=== PATIENT | female | born 1970 | race Caucasian/White ===

== ENCOUNTER → 2023-11-12 | Day surgery (SDC) | payer OTHER | END | disposition home or self-care (01) | LOC: FMAMMOTONE 12:50 | PROVIDERS: ATTEND Family Medicine | PROC: 0HBT3ZX Excision of Right Breast, Percutaneous Approach, Diagnostic (ICD-10-PCS; principal; 2023-11-12) | DX: D05.91 Unspecified type of carcinoma in situ of right breast (principal); N64.1 Fat necrosis of breast; N64.89 Other specified disorders of breast; R92.1 Mammographic calcification found on diagnostic imaging of breast | CPT/HCPCS: 19081; 76098-TC-FY; 88305-TC; 88342-TC ==

== ENCOUNTER → 2023-12-21 | Day surgery (SDC) | payer OTHER ==
[~2023-12-21] MED LIST: FENTANYL CITRATE/PF 50 MCG/ML VIAL ONE; MIDAZOLAM HCL 2 MG/2 ML SINGLE DOSE VIAL ONE; ONDANSETRON 4 MG/2 ML VIAL ONE; PROPOFOL 20 ML ONE
== END | disposition home or self-care (01) ==
LOC: JRADUS-SUR 10:16
PROVIDERS: ATTEND Surgery Surgical Oncology
PROC: BH00ZZZ Plain Radiography of Right Breast (ICD-10-PCS; principal; 2023-12-21)
DX: D05.11 Intraductal carcinoma in situ of right breast (principal)
CPT/HCPCS: 19281; A4648

== ENCOUNTER 2023-12-23 04:16 | Day surgery (SDC) | payer OTHER ==
[2023-12-17 13:25] VITALS: BMI 29.0
[2023-12-23] MEDS ORDERED: BUPIVACAINE HCL/PF 0.25% (2.5MG/ML) 10 ML VIAL ONE (07:41)
[2023-12-23] MEDS: ceFAZolin SODIUM 1 GM VIAL IVPB ONE (09:24)
[2023-12-23] MEDS ORDERED: ACETAMINOPHEN INJECTION 100 ML IVPB ONE (09:40)
[2023-12-23] MEDS: BUPIVACAINE HCL/PF 0.25% (2.5MG/ML) 10 ML VIAL IJ ONE ×2 (09:48)
[2023-12-23] MEDS ORDERED: ONDANSETRON 4 MG/2 ML VIAL IVPUSH PRN (10:34)
[2023-12-23] MEDS: LACTATED RINGERS SOLUTION 1,000 ML IV SCH (12:11)
[2023-12-23] MEDS: oxyCODONE HCL 5 MG TABLET PO ONE (12:50)
[2023-12-23] MEDS ORDERED: oxyCODONE HCL 5 MG TABLET ONE (12:52)
[2023-12-23 12:59] VITALS: RESP 20
[2023-12-23] MEDS ORDERED: IBUPROFEN 600 MG TABLET (FP) PO ONE (14:28)
[2023-12-23] MEDS: IBUPROFEN 600 MG TABLET (FP) PO ONE (14:40)
[2023-12-23 15:14] VITALS: BP 117/63; PULSE 78; TEMP 98.4
== END 2023-12-23 15:59 | disposition home or self-care (01) ==
LOC: JASU-SURG 04:16
PROVIDERS: ATTEND Surgery Surgical Oncology
PROC: 0HBT0ZZ Excision of Right Breast, Open Approach (ICD-10-PCS; principal; 2023-12-23 09:00)
DX: D05.11 Intraductal carcinoma in situ of right breast (principal)
CPT/HCPCS: 76098-TC-FY; 88307-TC; 88341-TC; 88342-TC; 94760; J0131